=== PATIENT | male | born 2005 | race Two or more races ===

== ENCOUNTER 2025-06-07 22:59 | Emergency (ER) | payer SELFPAY ==
[~2025-06-07] VITALS: Ht 167.6 cm; Wt 72.0 kg
[2025-06-07 23:12] VITALS: BP 112/69; PULSE 78; RESP 16; TEMP 97.9; O2SAT 98
[2025-06-08] MEDS: IBUPROFEN 400 MG TABLET PO ONE (02:07)
[2025-06-08] MEDS: ACETAMINOPHEN 500 MG TABLET PO ONE (02:07)
== END 2025-06-08 06:10 | disposition home or self-care (01) ==
LOC: EMS 23:29
DX: S70.01XA Contusion of right hip, initial encounter (principal); S80.01XA Contusion of right knee, initial encounter; S20.211A Contusion of right front wall of thorax, initial encounter; S40.811A Abrasion of right upper arm, initial encounter; V89.2XXA Person injured in unspecified motor-vehicle accident, traffic, initial encounter; Y93.89 Activity, other specified; Y92.410 Unspecified street and highway as the place of occurrence of the external cause; Y99.8 Other external cause status
CPT/HCPCS: 71045; 73502; 99284